=== PATIENT | female | born 1950 | race Caucasian/White ===

== ENCOUNTER 2019-02-05 09:35 | Inpatient (IN) | payer MEDICARE, OTHER ==
[~2019-02-05] VITALS: Ht 165.1 cm; Wt 67.2 kg
[2019-02-05 10:25] LABS: Calcium, Ionized (POC) 1.22 mmol/L (1.10-1.46); Chloride (POC) 107 mmol/L (98-108); Creatinine (POC) 1.2 mg/dL (0.6-1.0); Glucose (ISTAT POC) 362 mg/dL (70-99); Hemoglobin (POC) 12.6 g/dL (12.0-16.0); Potassium (POC) 5.9 mmol/L (3.5-5.5); Sodium (POC) 136 mmol/L (135-148); Total CO2 (POC) 25 mmol/L (21-32)
[2019-02-05 10:39] LABS: BASOPHILS ABSOLUTE AUTO 0.04 K/mm3 (0.00-0.23); BASOPHILS PERCENT AUTO 0 % (0-2); EOSINOPHILS ABSOLUTE AUTO 0.03 K/mm3 (0.00-0.68); EOSINOPHILS PERCENT AUTO 0 % (0-6); Hematocrit 39.5 % (33.0-51.0); Hemoglobin 11.6 g/dL (11.5-16.0); IMMATURE GRAN ABSOLUTE AUTO 0.08 K/mm3 (0.00-0.10); IMMATURE GRAN PERCENT AUTO 1 % (0-1); LYMPHOCYTES ABSOLUTE AUTO 0.57 K/mm3 (0.84-5.20); LYMPHOCYTES PERCENT AUTO 4 % (21-46); MONOCYTES PERCENT AUTO 6 % (4-13); Mean Corpuscular HGB Conc 29.4 g/dL (31.5-36.5); Mean Corpuscular Volume 109 fL (80-100); NEUTROPHILS ABSOLUTE AUTO 14.72 K/mm3 (1.96-9.15); NEUTROPHILS PERCENT AUTO 90 % (41-73); NRBC ABSOLUTE 0.04 K/mm3 (0.00-0.02); NRBC Auto 0.2 /100 WBC (0.0-0.2); Platelet Count 356 K/mm3 (150-400); RDW Coefficient Variation 15.2 % (11.7-14.2); RDW Standard Deviation 59.7 fL (35.1-46.3); Red Blood Cell Count 3.63 M/mm3 (3.80-5.20); White Blood Cell Count 16.34 K/mm3 (4.00-11.30)
[2019-02-05 10:53] LABS: Alanine Aminotransfer (ALT/SGP 341 U/L (12-78); Albumin, Blood 2.9 g/dL (3.4-5.0); Albumin/Globulin Ratio 0.7 (0.8-1.8); Alk Phos 369 U/L (50-136); Anion Gap 3 mmol/L (6-16); Aspartate Aminotrans (AST/SGOT 594 U/L (12-37); Bilirubin, Total 0.4 mg/dL (0.1-1.0); Blood Urea Nitrogen 25 mg/dL (8-24); Bun/Creatinine Ratio 24.5 (12.0-20.0); CO2, Blood 26 mmol/L (21-32); Calcium, Blood 8.6 mg/dL (8.5-10.1); Chloride, Blood 108 mmol/L (98-108); Creatinine, Blood 1.02 mg/dL (0.40-1.00); Globulin, Blood 4.4 g/dL (2.2-4.0); Glomerular Filtration Rate 57 (60-); Glucose, Blood 373 mg/dL (70-99); Potassium, Blood 5.8 mmol/L (3.5-5.5); Sodium, Blood 137 mmol/L (136-145); Total Protein, Blood 7.3 g/dL (6.4-8.2); Troponin I <0.015 ng/mL (0.000-0.040)
[2019-02-05 10:54] LABS: International Normalized Ratio 0.88; Prothrombin Time Results 9.4 Sec (9.7-11.5)
[2019-02-05] MEDS ORDERED: Robaxin-750750 MG PO (11:00)
[2019-02-05] MEDS ORDERED: ATOR10 PO (11:00)
[2019-02-05] MEDS ORDERED: PANT40 PO (11:00)
[2019-02-05] MEDS ORDERED: MIRT15 PO (11:01)
[2019-02-05] MEDS ORDERED: AMLO5 PO (11:01)
[2019-02-05] MEDS ORDERED: METF500C PO (11:01)
[2019-02-05] MEDS ORDERED: SERT25 PO (11:02)
[2019-02-05] MEDS ORDERED: TRAM50 PO (11:02)
[2019-02-05] MEDS ORDERED: CLOP75 PO (11:02)
[2019-02-05] MEDS ORDERED: SUCR1 PO (11:08)
[2019-02-05] MEDS ORDERED: GABA300 PO (11:09)
[2019-02-05 11:10] LABS: Source, Urine Catheter
[2019-02-05 11:22] LABS: Bilirubin, Urine Neg (Neg); Blood, Urine 1+ (Neg); Glucose Qualitative, Urine 3+ (Neg); Ketones, Urine Neg (Neg); Leukocyte Esterase, Urine Neg (Neg); Nitrite, Urine Neg (Neg); Protein, Urine 2+ (Neg); Urobilinogen, Urine NORM (Normal)
[2019-02-05 11:29] LABS: Appearance, Urine Clear (Clear); Color, Urine Yellow (P-Yellow)
[2019-02-05 11:32] LABS: Red Blood Cells, Urine 0-2 /hpf (0-2)
[2019-02-05 11:33] LABS: Amorphous Light (0-Heavy); Bacteria Few /hpf; Squamous Epithelial Cells Rare /hpf (Few)
--- NOTE | 2019-02-05 19:30 | NUR ---
arrived from er lethargic, medicated as prescribed, family assisted with history, call light in reach, family in room, cv for potassium, informed dr, fulfilled orders as written, improvement in mentation noted prior to end of shift, fluids infusing, sbar report given to manager multicultural nurse
--- NOTE | 2019-02-05 20:42 | NUR ---
PROVIDER CALLED CALLED MD RANDOLPH - UPDATED THAT PATIENTS PUPILS REMAIN PINPOINT AND THAT PATIENT IS NO FOLLOWING ANY DIRECTIONS - UNABLE TO HOLD ARMS UP OR MOVE LEGS AT THIS TIME. PATIENT WILL AROUSE WILL PAINFUL STIMULI BUT NO MEANINGFUL CONVERSTATION - ONE WORD ANSWERS AND THEN SHE FALLS BACK TO SLEEP. PROVIDER ALSO UPDATED THAT PATIENTS HEART RATE REMAIN ST IN THE 120-138. PROVIDER ALSO UPDATE THAT BLOOD PRESSURE IS HIGH AND THAT PATIENT IS NORMAL ALERT AND ORIENTED AT HOME AND NOT ON OXYGEN - PATIENT CURRENTLY ON 3 LPM NC AT THIS TIME WITH SAO2 95%. NEW ORDERS GIVEN FOR [facility]. WILL CONTINUE TO MONITOR - NO FURTHER NEW ORDERS GIVEN AT THIS TIME.
--- NOTE | 2019-02-05 23:51 | NUR ---
PROVIDER NOTIFIED. MD COON CALLED - NOTIFIED THAT BLADDER SCAN WAS [phone]. ORDERS FOR LEWIS CATH GIVEN.
--- NOTE | 2019-02-06 00:41 | NUR ---
PATIENT REMAINS LETHARGIC. SISTER IN-LAW AT BEDSIDE. REPORTED TO SELENE BRAVO. BED ALARM ON AND CALL LIGHT W/I REACH.
[2019-02-06 02:30] LABS: U Opiates Screen DETECTED
[2019-02-06 02:31] LABS: U Amphetamine Screen Not Detected; U Barbituate Screen Not Detected; U Benzodiazapine Screen Not Detected; U Buprenorphine Screen Not Detected; U Cannabinoids Screen Not Detected; U Cocaine Screen Not Detected; U Methadone Screen Not Detected; U Methamphetamine Screen Not Detected; U Oxycodone Screen Not Detected; U Phencyclidine Screen Not Detected; U Propoxyphene Screen Not Detected
--- NOTE | 2019-02-06 03:08 | NUR ---
ASSUMED PT CARE FROM [facility] PT LYING IN BED WITH SISTER IN LAW AT BEDSIDE. PT IS ALERT AND ORIENTED TO SELF; CONFUSED/FORGETFUL REGARDING CITY AND YEAR. PT IS ABLE TO ANSWER QUESTIONS APPROPRIATELY, WELL ANSWER SOME HEALTH HX QUESTIONS IN WHICH SISTER IN LAW CONFIRMS. STATES SHE HAS THE MEDIPORT TO RIGHT UPPER CHEST D/T NEEDING FREQUENT BLOOD TRANSFUSIONS. SISTER IN LAW STATES PT HAS BEEN COMPLIANT WITH MEDICATIONS AND HAS ONLY BEEN HERE FOR THREE DAYS. PT STATED SHE WAS HERE WITH HER ; HOWEVER, SISTER IN LAW STATES HE FIVE YEARS AGO. PT HAS SOME WHAT OF A SLURRED SPEECH D/T BEING EDENTULOUS; HOWEVER, ABLE TO UNDERSTAND WHAT PT IS SAYING. SHE IS ABLE TO TALK IN FULL SENTENCES THAT MAKE SENSE. PUPILS ARE SMALL, 2MM, AND EQUAL; DIFFICULT TO ASSESS REACTIVITY TO LIGHT. LUNG SOUNDS ARE CLEAR TO BILATERAL UPPER LOBES AND DIMINISHED TO BILATERAL LOWER LOBES. DRY COUGH NOTED. PT IS ON 3L VIA NC WITH BIOX AT 95%; SISTER IN LAW STATES PT DOES NOT WEAR OXYGEN AT HOME. PT IS SINUS TACHYCARDIA WITH HR 120'S. BLOOD PRESSURE STABLE WITH SBP 140'S. ABDOMEN IS MODERATELY DISTENDED, SOFT TO PALPATION WITH ACTIVE BTX4. LEWIS CATH IS PATENT AND DRAINING NAEEM COLORED URINE TO GRAVITY. PT DENIES ANY NUMBNESS/TINGLING TO HANDS/FEET. WHEN ASKED TO RAISE BILATERAL ARMS PT WAS ABLE TO EQUALLY RAISE ARMS, BUT HAD A NOTED UNDERLYING TREMOR. PT THEN FELL ASLEEP DURING ASSESSMENT AND WAS EASILY AROUSABLE. QUESTIONED SISTER IN LAW IF PT DRANK ALCOHOL IN WHICH SHE DENIED. SISTER IN LAW STATES THIS TREMOR IS NEW. DENIES PAIN AT THIS TIME. STATES SHE STARTED TAKING ROBAXIN IN WHICH SHE WAS PRESCRIBED RECENTLY FROM URGENT CARE D/T BACK SPASMS. CALL LIGHT WITHIN REACH; WILL CONTINUE TO MONITOR UNTIL REPORT IS HANDED OFF TO ONCOMING RN.
[2019-02-06 04:10] LABS: Hemoglobin 9.3 g/dL (11.5-16.0); Mean Corpuscular HGB 31.6 pg (26.0-34.0); Platelet Count 204 K/mm3 (150-400); RDW Coefficient Variation 15.4 % (11.7-14.2); RDW Standard Deviation 58.9 fL (35.1-46.3); Red Blood Cell Count 2.94 M/mm3 (3.80-5.20); White Blood Cell Count 8.18 K/mm3 (4.00-11.30)
[2019-02-06 04:12] LABS: Mean Corpuscular Volume 105 fL (80-100)
[2019-02-06 04:31] LABS: Anion Gap 2 mmol/L (6-16); Blood Urea Nitrogen 21 mg/dL (8-24); CO2, Blood 26 mmol/L (21-32); Calcium, Blood 8.1 mg/dL (8.5-10.1); Chloride, Blood 114 mmol/L (98-108); Creatinine, Blood 0.88 mg/dL (0.40-1.00); Glomerular Filtration Rate >60 (60-); Glucose, Blood 146 mg/dL (70-99); Potassium, Blood 5.3 mmol/L (3.5-5.5); Sodium, Blood 142 mmol/L (136-145)
--- NOTE | 2019-02-06 08:51 | NUR ---
IN TO ASSESS, STOPPED FLUIDS, SAID TO ADVANCE DIET TOLERATED, MONITOR FOR [id number]/SWALLOWING ISSUES, DISCUSSED PT WITH FAMILY AT BEDSIDE, CONCERN R/POSSIBLE STROKE, WROTE ORDERS, WILL CONTINUE TO MONITOR AND TREAT
--- NOTE | 2019-02-06 08:55 | NUR ---
PAIN IN L CALF, WARM + TENDER TO TOUCH, REDNESS NOTED, NO REDNESS OR S/SX INFECTION NOTED ON TOE l FOOT, MEDICATED, ASSESSED BUT WENT BACK TO SLEEP SOON STIMULI REMOVED
--- NOTE | 2019-02-06 11:37 | NUR ---
sent down for mri, removed all rings except wedding (gold) gave to daughter, awaiting results
--- NOTE | 2019-02-06 18:36 | NUR ---
alert at baseline, able to answer questions but wanders mentaly, was able to follow directions enough to get an mri but not enough for pt to get her out of bed and walk, call light in reach, family in room, saline locked, loc has stayed the same, treated temp with tylenol, eyes track but are contracted
[2019-02-07 04:05] LABS: Hematocrit 30.8 % (33.0-51.0); Hemoglobin 9.5 g/dL (11.5-16.0); Mean Corpuscular HGB 31.7 pg (26.0-34.0); Mean Corpuscular HGB Conc 30.8 g/dL (31.5-36.5); Mean Corpuscular Volume 103 fL (80-100); Mean Platelet Volume 10.3 fL (9.1-12.4); Platelet Count 197 K/mm3 (150-400); RDW Coefficient Variation 14.8 % (11.7-14.2); RDW Standard Deviation 55.5 fL (35.1-46.3); White Blood Cell Count 10.09 K/mm3 (4.00-11.30)
[2019-02-07 04:29] LABS: Anion Gap 5 mmol/L (6-16); Blood Urea Nitrogen 18 mg/dL (8-24); Bun/Creatinine Ratio 24.9 (12.0-20.0); CO2, Blood 27 mmol/L (21-32); Calcium, Blood 8.5 mg/dL (8.5-10.1); Chloride, Blood 110 mmol/L (98-108); Creatinine, Blood 0.72 mg/dL (0.40-1.00); Glomerular Filtration Rate >60 (60-); Glucose, Blood 214 mg/dL (70-99); Potassium, Blood 4.6 mmol/L (3.5-5.5); Sodium, Blood 142 mmol/L (136-145)
--- NOTE | 2019-02-07 07:00 | NUR ---
SHIFT SUMMARY PT WAS INITIALLY ONLY ORIENTED TO SELF, FAMILY AND AWAKENED ONLY TO VERBAL STIMULI AT START OF SHIFT. PT CURRENTLY ALERT AND ORIENTED TO SELF/FAMILY/SURROUNDINGS AND ABLE TO FOLLOW DIRECTIONS BETTER. PT IS SITTING UP IN BED INDEPENDENTLY AND CALLING OUT FAMILY MEMBERS NAME THAT IS AT BEDSIDE. PT ABLE TO SWALLOW PILLS CRUSHED IN APPLESAUCE OR PUDDING WITHOUT PROMPTING OR POCKETING. VSS. HAS BEEN VERY PLEASANT, BUT DISORIENTED THROUGHOUT THE NIGHT. PT ABLE TO REPORT DISCOMFORT TO BACK THROUGHOUT THE NIGHT, BUT WAS UNABLE TO SCORE PAIN ON SCALE OF 1-10 WHEN ASKED, ONLY ABLE TO SAY "OUCH"- NON-VERBAL PAIN SCALE UTILIZED IN THIS INSTANCE. PT ABLE TO REST WELL THROUGOUT THE NIGHT, WAKING EASILY FOR CARE. O2 SATS HAVE REMAINED >90% ON 2L VIA NASAL CANNULA. PT WILL FREQUENTLY REMOVE NASAL CANNULA FROM NOSE AND REQUIRES ENCOURAGEMENT AND ASSISTANCE TO REPLACE IT. FAMILY HAS REMAINED AT BEDSIDE THROUGHOUT THE NIGHT AND ASSISTED WITH CARE. NO OTHER CHANGES NOTED FROM INITIAL ASSESSMENT. WILL CONTINUE TO MONITOR AND REPORT TO ONCOMING SHIFT RN. BED IN LOW POSITION, CALL LIGHT IN REACH. BED ALARM SET FOR SAFETY.
--- NOTE | 2019-02-07 18:16 | NUR ---
SHIFT SUMMARY: PT WAS TRANSFERRED FROM PCU THIS BRYAN. SHE IS ALERT AND ORIENTED TO HERSELF AND SITUATION. PT STATES SHE IS UPSTAIRS AT THE HOSPITAL AND LIVES IN [place] BUT IS UNSURE OF HOW OR WHY SHE IS HERE AND STATES THAT SHE HAS NO FAMILY HERE ALTHOUGH SHE DOES. PT ALSO PRESENT WITH CONSTANT TONGUE SMACKING AND AND PROTRUSION. LEWIS IS PATENT WITH CLEAR YELLOW URINE. PT WAS ORIENTED TO HER ROOM AND NURSING STAFF AND CALL LIGHT IS IN REACH.
--- NOTE | 2019-02-07 18:17 | NUR ---
SHIFT SUMMARY PT ALERT TO SELF, , FAMILY, AND FOLLOWING DIRECTIONS. VS STABLE. O2 SATS REMAIN ABOVE 90% ON 2L NC. PT ABLE TO SWALLOW PILLS CRUSHED IN APPLESAUCE. PT UNINTERESTED IN EATING ANYTHING THIS SHIFT. PT DID HAVE SOME SIPS OF WATER. PT ABLE TO REPORT DISCOMFORT IN HER BACK THIS SHIFT THAT WAS RELIEVED WITH TYLENOL. PT'S SISTER IN LAW GLORIA HAS BEEN IN ALL DAY AND ASSISTING WITH PT NEEDS. PT ABLE TO WORK WITH PHYSICAL THERAPY AND AMBULATE TO CHAIR. PT TRANSFERRED TO MEDICAL FLOOR.
[2019-02-07 19:44] LABS: Base Excess Venous 4.1 mmol/L; Bicarbonate Venous 27.6 mmol/L (24.0-30.0); PCO2 Venous 44.7 mmHg (38-42); PO2 Venous 84.5 mmHg (38-42); pH Blood Venous 7.42 (7.34-7.37)
[2019-02-08 05:30] LABS: BASOPHILS ABSOLUTE AUTO 0.05 K/mm3 (0.00-0.23); BASOPHILS PERCENT AUTO 1 % (0-2); EOSINOPHILS ABSOLUTE AUTO 0.21 K/mm3 (0.00-0.68); EOSINOPHILS PERCENT AUTO 3 % (0-6); Hemoglobin 9.5 g/dL (11.5-16.0); IMMATURE GRAN ABSOLUTE AUTO 0.03 K/mm3 (0.00-0.10); IMMATURE GRAN PERCENT AUTO 0 % (0-1); LYMPHOCYTES ABSOLUTE AUTO 0.57 K/mm3 (0.84-5.20); LYMPHOCYTES PERCENT AUTO 7 % (21-46); MONOCYTES ABSOLUTE AUTO 0.91 K/mm3 (0.16-1.47); MONOCYTES PERCENT AUTO 12 % (4-13); Mean Corpuscular HGB 31.4 pg (26.0-34.0); Mean Corpuscular HGB Conc 30.6 g/dL (31.5-36.5); Mean Corpuscular Volume 102 fL (80-100); Mean Platelet Volume 10.1 fL (9.1-12.4); NEUTROPHILS ABSOLUTE AUTO 6.04 K/mm3 (1.96-9.15); NEUTROPHILS PERCENT AUTO 77 % (41-73); Platelet Count 192 K/mm3 (150-400); RDW Coefficient Variation 14.3 % (11.7-14.2); Red Blood Cell Count 3.03 M/mm3 (3.80-5.20); White Blood Cell Count 7.81 K/mm3 (4.00-11.30)
[2019-02-08 05:55] LABS: Alanine Aminotransfer (ALT/SGP 80 U/L (12-78); Albumin, Blood 2.1 g/dL (3.4-5.0); Albumin/Globulin Ratio 0.5 (0.8-1.8); Alk Phos 236 U/L (50-136); Anion Gap 6 mmol/L (6-16); Aspartate Aminotrans (AST/SGOT 28 U/L (12-37); Bilirubin, Total 0.4 mg/dL (0.1-1.0); Blood Urea Nitrogen 9 mg/dL (8-24); Bun/Creatinine Ratio 14.1 (12.0-20.0); CO2, Blood 29 mmol/L (21-32); Calcium, Blood 8.7 mg/dL (8.5-10.1); Chloride, Blood 105 mmol/L (98-108); Creatinine, Blood 0.64 mg/dL (0.40-1.00); Globulin, Blood 4.1 g/dL (2.2-4.0); Glomerular Filtration Rate >60 (60-); Glucose, Blood 175 mg/dL (70-99); Potassium, Blood 3.5 mmol/L (3.5-5.5); Sodium, Blood 140 mmol/L (136-145); Total Protein, Blood 6.2 g/dL (6.4-8.2)
--- NOTE | 2019-02-08 06:37 | NUR ---
pale White Female visiting from [place] alert and mildly confused. She was more oriented this AM knew year but not month or date. Incontinent of bowel movement x 2, has vera cath for urinary retention. Medicated for pain with tylenol 650 mg with helpful effect for acute back pain. Started diet mech soft with ground meat. Provided ensure and vanilla yogurt. able to feed self and drink with straw. PT does not use call jacques calls out for assist. Fall precautions continue. tele shows NSR.
[2019-02-08] MEDS ORDERED: METO50ER PO (14:09)
[2019-02-08] MEDS ORDERED: ACET325 PO (14:09)
--- NOTE | 2019-02-08 14:41 | NUR ---
PT DCD HOME WITH SISTER IN LAW. ALL MEDICATIONS AND INSTRUCTIONS REVIEWED WITH PT. PT LIVES IN [place] AND IS HERE VISITING FAMILY AND STATED SHE WOULD CALL AND FOLLOW UP WITH HER PCP IN [place]. ALL RX FAXED TO [facility] PER PT REQUEST. IV REMOVED WITH NO ISSUE. PT ASSISTED TO PRIVATE CAR VIA W/C. PT STABLE UPON DC.
== END 2019-02-08 14:30 | disposition home or self-care (01) | DRG 92 ==
LOC: ER 09:35 → MEDS 09:36 → ER 09:36 → PCU 14:16 → MEDS 14:57 → PCU 16:00 → MEDS 02-06 14:16 → PCU 02-07 14:41 → MEDS 02-07 17:54 → ENPENDDIS 02-08 12:54 → MEDS 02-08 14:30
PROVIDERS: Emergency Medicine; Internal Medicine; ADMIT Internal Medicine
DX: G92 Toxic encephalopathy (principal); I48.20 Chronic atrial fibrillation, unspecified; Z86.73 Personal history of transient ischemic attack (TIA), and cerebral infarction without residual deficits; I25.10 Atherosclerotic heart disease of native coronary artery without angina pectoris; Z87.891 Personal history of nicotine dependence; Z79.84 Long term (current) use of oral hypoglycemic drugs; E87.5 Hyperkalemia
CPT/HCPCS: 36415; 51702; 70450; 70551; 71045; 72125; 73502; 80047; 80048; 80053; 81001; 82140; 82803; 82947; 83605; 84132; 84443; 84484; 85014; 85025; 85027; 85610; 85730; 87040; 93005; 93010; 96361; 96372; 96374; 96376; 97110; 97116; 97161; 97530; 99285-25; A9270; G0378; J0610; J1650; J1815; J2310; J2543; J7030; J7120; J7799; P9612

== ENCOUNTER → 2021-11-25 | Outpatient (CLI) | payer MEDICARE, OTHER ==
[~2021-11-25] MED LIST: ACET325 PO; AMLO5 PO; ATOR10 PO; CLOP75 PO; GABA300 PO; METF500C PO; METO50ER PO; MIRT15 PO; PANT40 PO; Robaxin-750750 MG PO; SERT25 PO; SUCR1 PO; TRAM50 PO
== END | disposition home or self-care (01) ==
LOC: LAB 10:30 → LAB SHORT 10:30
DX: R30.0 Dysuria (principal)
CPT/HCPCS: 87077; 87086; 87186

== ENCOUNTER → 2022-01-08 | Outpatient (CLI) | payer MEDICARE, OTHER ==
[2022-01-08 15:05] LABS: Ferritin, Serum 11 ng/mL (8-252); Iron Serum 126 ug/dL (50-170); Percent Saturation 32.6 % (15.0-50.0); Total Iron Binding Capacity 387 ug/dL (250-450)
== END | disposition home or self-care (01) ==
LOC: LAB SHORT 11:09
PROVIDERS: Internal Medicine Hematology & Oncology
DX: E53.8 Deficiency of other specified B group vitamins (principal); D50.0 Iron deficiency anemia secondary to blood loss (chronic)
CPT/HCPCS: 82607; 82728; 82746; 83540; 83550

== ENCOUNTER → 2022-06-23 | Outpatient (CLI) | payer MEDICARE, OTHER ==
[2022-06-23 18:22] LABS: Percent Saturation 23.1 % (15.0-50.0)
== END | disposition home or self-care (01) ==
LOC: LAB SHORT 08:13 → LAB 08:13
PROVIDERS: Internal Medicine Hematology & Oncology
DX: D50.0 Iron deficiency anemia secondary to blood loss (chronic) (principal); E53.8 Deficiency of other specified B group vitamins
CPT/HCPCS: 82607; 82728; 82746; 83540; 83550